=== PATIENT | male | born 1965 | race Caucasian/White ===

== ENCOUNTER 2018-03-17 06:21 | Day surgery (SDC) | payer OTHER ==
[2018-03-17] MEDS ORDERED: MIDAZOLAM 1 MG/ML 2 ML INJ (07:00)
[2018-03-17] MEDS ORDERED: LIDOCAINE 2% (SDV) 5 ML INJ (07:45)
[2018-03-17] MEDS ORDERED: PROPOFOL 60 ML (07:45)
== END 2018-03-17 10:00 | disposition home or self-care (01) ==
LOC: GIL 06:21
DX: Z12.11 Encounter for screening for malignant neoplasm of colon (principal); D12.5 Benign neoplasm of sigmoid colon; K64.8 Other hemorrhoids; K44.9 Diaphragmatic hernia without obstruction or gangrene
CPT/HCPCS: 43239; 88305; 88312